=== PATIENT | male | born 1965 | race Caucasian/White ===

== ENCOUNTER 2024-08-16 09:47 | Emergency (ER) | payer OTHER ==
[~2024-08-16] VITALS: Ht 180.3 cm; Wt 91.6 kg
[2024-08-16 09:50] VITALS: BP 170/82
[2024-08-16] MEDS ORDERED: KETOROLAC TROMETHAMINE 15 MG/ML VIAL IV ONE (10:00)
[2024-08-16 10:09] LABS: HEMATOCRIT 44.7 % (35.0-50.0); HEMOGLOBIN 14.8 g/dL (12.0-18.0); MCH 31.2 (27-36); MCHC 33.1 g/dl (30-36); MCV 94.4 fl (81-99); PLATELET COUNT 264 K/uL (140-440); RBC 4.74 M/ul (4.3-5.7)
[2024-08-16 10:28] LABS: ALBUMIN 3.7 g/dL (3.4-5.0); ALBUMIN/GLOBULIN RATIO 1.12 (1.1-2.4); ALCOHOL, MEDICAL <3 ng/dL (<3); ALKALINE PHOSPHATASE 84 U/L (46-116); ALT (SGPT) 21 U/L (14-59); ANION GAP 13.8 (7-21); AST (SGOT) 14 U/L (15-37); BILIRUBIN, TOTAL 0.3 mg/dL (0.2-1.0); BUN/CREATININE RATIO 9.67 (6.0-28.6); CALCIUM 9.3 mg/dL (8.5-10.1); CARBON DIOXIDE 27 mmol/L (21-32); CHLORIDE 104 mmol/L (98-107); CREATININE, SERUM 0.93 mg/dL (0.70-1.30); GLOMERULAR FILTRATION RATE,EST 96 mL/min (>60); POTASSIUM 3.8 mmol/L (3.5-5.1); UREA NITROGEN 9 mg/dL (7-18)
[2024-08-16 10:32] LABS: BANDS, MANUAL DIFF 1; BASOPHILS, MANUAL DIFF 1; EOSINOPHILS, MANUAL DIFF 1; LYMPHOCYTES, MANUAL DIFF 36; MONOCYTES, MANUAL DIFF 4; NEUTROPHILS, MANUAL DIFF 57
[2024-08-16] MEDS ORDERED: NAPROSYN500 MG PO (11:15)
== END 2024-08-16 11:25 | disposition home or self-care (01) ==
LOC: ED 09:47
PROVIDERS: Emergency Medicine
DX: S01.01XA Laceration without foreign body of scalp, initial encounter (principal); S20.211A Contusion of right front wall of thorax, initial encounter; V58.5XXA Driver of pick-up truck or van injured in noncollision transport accident in traffic accident, initial encounter
CPT/HCPCS: 36415; 70450; 71260; 72125; 74177; 80053; 83690; 85025; 99284-25; G0480; J1885; Q9967